=== PATIENT | female | born 1945 | race Caucasian/White ===

== ENCOUNTER 2016-08-07 22:59 | Inpatient (IN) | payer OTHER, MEDICARE ==
[2016-08-07] MEDS ORDERED: ceFAZolin 2 GM PREMIX 50 ML ONE (23:04)
--- NOTE | 2016-08-07 23:20 | PD ---
HPI Chief Complaint: Trauma (Alert) Time Seen by Provider: 23:04 Travel History International Travel<30 days: No Contact w/Intl Traveler<30days: No Traveled to known affect area: No History of Present Illness HPI Patient was brought in as a trauma alert. I was present in the room waiting for the patient to arrive. She is in her 68s and intoxicated. As per EMS she stepped out of her trailer and fell on concrete ground. As per the bystanders she had an LOC of 7-10 minutes. She had bleeding from the left side of her head /ear area. GCS was 14 on route. At one point her blood pressure was 80s systolic. She was given IV fluid bolus after which the blood pressure consistently remained more than 120s systolic. She arrived boarded and collared and talking but confused. Trauma surgeon was in the room as well assessing the patient. Patient was not a reliable historian given her mental status. [facility] Past Medical History Narrative Medical Unknown Social History Alcohol Use: Yes Tobacco Use: Yes Allergies-Medications (Allergen,Severity, Reaction): Coded Allergies: UNOBTAINABLE (Unverified , 08/07/16) Comments Unknown Narrative Medication Unknown Review of Systems Except as stated in HPI: all other systems reviewed are Neg Physical Exam Narrative GENERAL: Intoxicated, confused, boarded and collared, obese SKIN: Warm and dry. HEAD: Left-sided head bleed, ear bleed EYES: Pupils equal and round. No scleral icterus. No injection or drainage. ENT: No nasal bleeding or discharge. Mucous membranes pink and moist. NECK: Trachea midline. No JVD. CARDIOVASCULAR: Regular rate and rhythm. No murmur appreciated. RESPIRATORY: No accessory muscle use. Clear to auscultation. Breath sounds equal bilaterally. GASTROINTESTINAL: Abdomen soft, non-tender, nondistended. Hepatic and splenic margins not palpable. MUSCULOSKELETAL: No obvious deformities. No clubbing. No cyanosis. No edema. NEUROLOGICAL: Intoxicated and slurred speech. No obvious cranial nerve deficits. Motor grossly within normal limits. PSYCHIATRIC: Appropriate mood and affect; insight and judgment normal. Data Data Orders Cefazolin 2 Gm Premix (Ancef 2 Gm Premix (08/07/16 23:04) I-Stat Profile (08/07/16 23:04) I-Stat Creatinine (08/07/16 23:04) Complete Blood Count With Diff (08/07/16 23:04) Prothrombin Time / Inr (Pt) (08/07/16 23:04) Act Partial Throm Time (Ptt) (08/07/16 23:04) Type And Screen (08/07/16 23:04) Chest, Single Ap (08/07/16 23:04) Pelvis, Ap Only (Routine) (08/07/16 23:04) Ct Brain W/O Iv Contrast(Rout) (08/07/16 23:04) Ct Cerv Spine W/O Contrast (08/07/16 23:04) Ct Abd/Pel W Iv Contrast(Rout) (08/07/16 23:04) Iv Access Insert/Monitor (08/07/16 23:04) Ecg Monitoring (08/07/16 23:04) Oximetry (08/07/16 23:04) Oxygen Administration (08/07/16 23:04) Ct Thorax/ Chest W Iv Contrast (08/07/16 ) Collar Swain (08/07/16 ) Iohexol 350 Inj (Omnipaque 350 Inj) (08/07/16 23:23) Admit To Inpatient (08/07/16 ) Vital Signs (Adult) PITER.QSHIFT (08/07/16 23:29) Intake + Output PITER.Q8H (08/07/16 23:29) Neuro Checks PITER.Q4H (08/07/16 23:29) Activity Oob Ad Carley (08/07/16 23:29) Urinary Catheter Management PITER.Q8H (08/07/16 23:29) ^ Instruction (08/07/16 23:29) Complete Blood Count With Diff (08/08/16 06:00) Basic Metabolic Panel (Bmp) (08/08/16 06:00) Lactated Ringer's 1000 Ml Inj (Lr 1000 M (08/07/16 23:29) Sodium Chloride 0.9% Flush (Ns Flush) (08/07/16 23:30) Morphine Inj (Morphine Inj) (08/07/16 23:30) Ondansetron Inj (Zofran Inj) (08/07/16 23:30) Multivitamin Inj (Mvi-12 Inj)... (08/08/16 02:00) ^ Initiate Protocol (08/07/16 23:29) ^ Instruction (08/07/16 23:29) [facility] [place] (08/07/16 23:30) Chlorhexidine 2% Cloth (Chlorhexidine 2% (08/07/16 23:30) Inpatient Certification (08/07/16 ) Pantoprazole Inj (Protonix Inj) (08/08/16 00:00) Admit Order (Ed Use Only) (08/07/16 23:46) Labs Laboratory Tests Test 08/07/16 23:04 White Blood Count 13.1 TH/MM3 Red Blood Count 4.62 MIL/MM3 Hemoglobin 13.4 GM/DL Bedside Hemoglobin 14.3 G/DL Hematocrit 40.3 % Bedside Hematocrit 42.0 % Mean Corpuscular Volume 87.3 FL Mean Corpuscular Hemoglobin 29.0 PG Mean Corpuscular Hemoglobin 33.2 % Concent Red Cell Distribution Width 13.5 % Platelet Count 263 TH/MM3 Mean Platelet Volume 8.9 FL Neutrophils (%) (Auto) 61.3 % Lymphocytes (%) (Auto) 30.8 % Monocytes (%) (Auto) 5.4 % Eosinophils (%) (Auto) 2.0 % Basophils (%) (Auto) 0.5 % Neutrophils # (Auto) 8.0 TH/MM3 Lymphocytes # (Auto) 4.0 TH/MM3 Monocytes # (Auto) 0.7 TH/MM3 Eosinophils # (Auto) 0.3 TH/MM3 Basophils # (Auto) 0.1 TH/MM3 CBC Comment DIFF FINAL Differential Comment Prothrombin Time 10.6 SEC Prothromb Time International 1.0 RATIO Ratio Activated Partial 25.4 SEC Thromboplast Time Bedside Sodium 136 MMOL/L Bedside Potassium 3.9 MMOL/L Bedside Chloride 94 MMOL/L Bedside Blood Urea Nitrogen 11 MG/DL Bedside Creatinine 1.0 MG/DL Bedside Glucose 106 MG/DL Blood Type A POSITIVE Antibody Screen NEGATIVE MDM Medical Screen Exam Complete: Yes Emergency Medical Condition: Yes Medical Record Reviewed: Yes EKG Prior to Arrival: Yes Differential Diagnosis Intracranial bleed, cervical fracture, intrathoracic injury, intra-abdominal injury Narrative Course 11:49 PM I was in the room along with the trauma surgeon. Patient was cleared off the backboard and palpated her spine. Patient continued to remain GCS of 14 and hemodynamically stable. She was taken to the CT scanner and the trauma surgeon assisted her. I did not do a FAST ultrasound on this patient. Trauma surgeon wanted to admit her overnight at least for observation given her altered mental status. The trauma surgeon will take care of the scalp laceration. Please refer to his notes. Critical Care Narrative Aggregate critical care time was 30 minutes. Time to perform other separately billable procedures was not included in the critical care time. My time did not include minutes spent treating any other patients simultaneously or on activities that did not directly contribute to the patient's treatment. The services I provided to this patient were to treat and/or prevent clinically significant deterioration that could result in: Trauma alert, head injury, altered mental status I provided critical care services requiring my management, as noted below: Chart data review, documentation time, medication orders and management, vital sign assessments/reviewing monitor data, ordering and reviewing lab tests, ordering and interpreting/reviewing x-rays and diagnostic studies, care of the patient and discussion of the patient with the admitting physicians. Trauma Alert - Level One Trauma Alert Level One: Full trauma team activate, Patient evaluated, Trauma surgeon summoned Time Surgeon Summoned: 22:[address] Fuentes Diagnosis Diagnosis: Primary Impression: Fall Qualified Code: W19.XXXA - Fall, initial encounter Additional Impressions: Head injury Qualified Code: S09.90XA - Head injury, initial encounter Altered mental status Qualified Code: R41.0 - Disorientation Scalp laceration Qualified Code: S01.01XA - Scalp laceration, initial encounter Admitting Physician Requests: Observation Guerline Mckeon MD Aug 07, 2016 23:20 Guerline Mckeon MD Aug 07, 2016 23:20
[2016-08-07 23:21] LABS: I-STAT POTASSIUM 3.9 MMOL/L (3.5-4.9)
[2016-08-07 23:22] LABS: BASOPHIL # 0.1 TH/MM3 (0-0.2); BASOPHIL % 0.5 % (0.0-2.0); EOSINOPHIL # 0.3 TH/MM3 (0-0.4); HEMATOCRIT 40.3 % (35.0-46.0); HEMO FLAGS DIFF FINAL; LYMPH % 30.8 % (9.0-44.0); MEAN CELL VOLUME 87.3 FL (80.0-100.0); MEAN CORPUSCULAR HGB CONC 33.2 % (32.0-36.0); MONO % 5.4 % (0.0-8.0); NEUT % 61.3 % (16.0-70.0); PLATELET COUNT 263 TH/MM3 (150-450); RED BLOOD COUNT 4.62 MIL/MM3 (4.00-5.30); RED CELL DISTRIBUTION WIDTH 13.5 % (11.6-17.2); WHITE BLOOD COUNT 13.1 TH/MM3 (4.0-11.0)
[2016-08-07] MEDS ORDERED: IOHEXOL 350 MG/ML 10 ML VIAL (for RAD DIAG) IV ONE (23:23)
[2016-08-07] MEDS ORDERED: LACTATED RINGER'S 1000 ML INJ 1,000 ML IV SCH (23:29)
--- NOTE | 2016-08-07 23:29 | RADRPT ---
EXAM DATE/TIME: 08/07/2016 23:06 [facility] COMPARISON: No previous studies available for comparison. INDICATIONS : Trauma alert; fall from standing RADIATION DOSE: 69.15 CTDIvol (mGy) MEDICAL HISTORY : Non-responsive. SURGICAL HISTORY : Non-responsive. ENCOUNTER: Initial ACUITY: 1 day PAIN SCALE: Non-responsive LOCATION: Bilateral cranial TECHNIQUE: Multiple contiguous axial images were obtained of the head. Using automated exposure control and adj ustment of the mA and/or kV according to patient size, radiation dose was kept as low as reasonably a chievable to obtain optimal diagnostic quality images. FINDINGS: CEREBRUM: The ventricles are normal for age. No evidence of midline shift, mass lesion, hemorrhage or acute in farction. No extra-axial fluid collections are seen. POSTERIOR FOSSA: The cerebellum and brainstem are intact. The 4th ventricle is midline. The cerebellopontine angle i s unremarkable. EXTRACRANIAL: The visualized portion of the orbits is intact. SKULL: The calvaria is intact. No evidence of skull fracture. CONCLUSION: 1. No acute intracranial abnormalities. There is a left-sided scalp laceration and scalp hematoma. Re tention cyst left maxillary sinus. Dread Conway MD on August 07, 2016 at 23:22 Board Certified Radiologist. This report was verified electronically.
[2016-08-07 23:30] LABS: APTT (PATIENT) 25.4 SEC (24.3-30.1); PROTHROMBIN TIME - PATIENT 10.6 SEC (9.8-11.6)
[2016-08-07] MEDS ORDERED: MORPHINE SULFATE 4 MG/ML INJ IV PRN (23:30)
[2016-08-07] MEDS ORDERED: CHLORHEXIDINE GLUCONATE 2 % 1 PACK (2 CLOTHS) TOP PRN (23:30)
[2016-08-07] MEDS ORDERED: ONDANSETRON HCL 4 MG/2 ML VIAL IV PRN (23:30)
[2016-08-07] MEDS ORDERED: SODIUM CHLORIDE 0.9% FLUSH 5 ML FLUSH IVF PRN (23:30)
[2016-08-07] MEDS ORDERED: MISCELLANEOUS NURSING INFORMATION XX SCH (23:30)
--- NOTE | 2016-08-07 23:31 | RADRPT ---
EXAM DATE/TIME: 08/07/2016 22:53 [facility] COMPARISON: No previous studies available for comparison. INDICATIONS : Trauma alert. Patient tripped and fell out of her trailer home. MEDICAL HISTORY : None. SURGICAL HISTORY : None. ENCOUNTER: Initial ACUITY: 1 day PAIN SCORE: Non-responsive. LOCATION: chest FINDINGS: A single view of the chest demonstrates the lungs to be symmetrically aerated without evidence of mas s, infiltrate or effusion. The cardiomediastinal contours are unremarkable. Osseous structures are intact. CONCLUSION: No acute disease. Dread Conway MD on August 07, 2016 at 23:27 Board Certified Radiologist. This report was verified electronically.
--- NOTE | 2016-08-07 23:31 | RADRPT ---
EXAM DATE/TIME: 08/07/2016 22:53 [facility] COMPARISON: No previous studies available for comparison. INDICATIONS : Trauma alert. Patient tripped and fell coming out of trailer home. MEDICAL HISTORY : None. SURGICAL HISTORY : None. ENCOUNTER: Initial ACUITY: 1 day PAIN SCORE: Non-responsive. LOCATION: Pelvis FINDINGS: A single frontal view of the pelvis demonstrates no evidence of fracture. The bony pelvic ring is in tact. Bony mineralization is normal. The soft tissues are intact. CONCLUSION: 1. No acute findings. Dread Conway MD on August 07, 2016 at 23:29 Board Certified Radiologist. This report was verified electronically.
--- NOTE | 2016-08-07 23:42 | HHI.HP ---
History of Present Illness Primary Care Physician Admission Diagnosis Diagnoses: History of Present Illness 68 + y.o female fell from her sjocqgg-fnqyvqjzbso-avegvyxwya had a LOC of 7-10 min-trauma lert-GCS 14-moving all 4 extremities-HD normal Review of Systems ROS Limitations: Clinical Condition, Intoxication, Altered Mental Status, Uncooperative ROS cannot be obtained due to clinical condition Past Family Social History Allergies: Coded Allergies: UNOBTAINABLE (Unverified , 08/07/16) Past Medical History cannot be obtained Past Surgical History cannot be obtained Reported Medications cannot be obtained Active Ordered Medications cannot be obtained Family History cannot be obtained Social History cannot be obtained Physical Exam Physical Exam GENERAL: This is a well-nourished, well-developed patient, apparently intoxicated with ETOH SKIN: No rashes, ecchymoses or lesions. Cool and dry. HEAD: Atraumatic. Normocephalic. No temporal or scalp tenderness. EYES: Pupils equal round and reactive. Extraocular motions intact. No scleral icterus. No injection or drainage. ENT: Nose without bleeding, purulent drainage or septal hematoma. Throat without erythema, tonsillar hypertrophy or exudate. Uvula midline. Airway patent.bleeding small 1.5 cm wound left ear NECK: Trachea midline. No JVD or lymphadenopathy. Supple, nontender, no meningeal signs. CARDIOVASCULAR: Regular rate and rhythm without murmurs, gallops, or rubs. RESPIRATORY: Clear to auscultation. Breath sounds equal bilaterally. No wheezes , rales, or rhonchi. GASTROINTESTINAL: Abdomen soft, non-tender, nondistended. No hepato-splenomegaly , or palpable masses. No guarding. MUSCULOSKELETAL: Extremities without clubbing, cyanosis, or edema. No joint tenderness, effusion, or edema noted. No calf tenderness. Negative Homans sign bilaterally. NEUROLOGICAL: GCS 14Cranial nerves II through XII intact. Motor and sensory grossly within normal limits. Five out of 5 muscle strength in all muscle groups. Normal speech. Laboratory Laboratory Tests Test 08/07/16 23:04 White Blood Count 13.1 Red Blood Count 4.62 Hemoglobin 13.4 Bedside Hemoglobin 14.3 Hematocrit 40.3 Bedside Hematocrit 42.0 Mean Corpuscular Volume 87.3 Mean Corpuscular Hemoglobin 29.0 Mean Corpuscular Hemoglobin 33.2 Concent Red Cell Distribution Width 13.5 Platelet Count 263 Mean Platelet Volume 8.9 Neutrophils (%) (Auto) 61.3 Lymphocytes (%) (Auto) 30.8 Monocytes (%) (Auto) 5.4 Eosinophils (%) (Auto) 2.0 Basophils (%) (Auto) 0.5 Neutrophils # (Auto) 8.0 Lymphocytes # (Auto) 4.0 Monocytes # (Auto) 0.7 Eosinophils # (Auto) 0.3 Basophils # (Auto) 0.1 CBC Comment DIFF FINAL Differential Comment Prothrombin Time 10.6 Prothromb Time International 1.0 Ratio Activated Partial 25.4 Thromboplast Time Bedside Sodium 136 Bedside Potassium 3.9 Bedside Chloride 94 Bedside Blood Urea Nitrogen 11 Bedside Creatinine 1.0 Bedside Glucose 106 Blood Type A POSITIVE Result Diagram: 08/07/16 2304 Imaging my own review CT head,cspine,CAP -no injury Assessment and Plan Assessment and Plan small ear injury left ETOH intoxication no systemic injuries admit to floor hydrate banana bag anticipate dc in am closure ear wound ER Mily Fuentes MD Aug 07, 2016 23:42
--- NOTE | 2016-08-07 23:42 | RADRPT ---
EXAM DATE/TIME: 08/07/2016 23:10 [facility] COMPARISON: No previous studies available for comparison. INDICATIONS : Trauma alert, fall from a standing position. RADIATION DOSE: 37.38 CTDIvol (mGy) MEDICAL HISTORY : Non-responsive. SURGICAL HISTORY : Non-responsive. ENCOUNTER: Initial ACUITY: 1 day PAIN SCALE: Non-responsive LOCATION: neck TECHNIQUE: Volumetric scanning of the cervical spine was performed. Multiplanar reconstructions in the sagittal, coronal and oblique axial planes were performed. Using automated exposure control and adjustment o f the mA and/or kV according to patient size, radiation dose was kept as low as reasonably achievable to obtain optimal diagnostic quality images. FINDINGS: No acute fracture or spondylolisthesis or pre-vertebral soft tissue swelling. Moderate degenerative d isc disease in lower cervical spine with mild canal stenosis at C5-6-7. CONCLUSION: 1. No acute findings. Moderate degenerative disc disease and facet arthropathy predominantly in the l ower cervical spine. Dread Conway MD on August 07, 2016 at 23:37 Board Certified Radiologist. This report was verified electronically.
--- NOTE | 2016-08-07 23:51 | RADRPT ---
EXAM DATE/TIME: 08/07/2016 23:13 [facility] COMPARISON: No previous studies available for comparison. INDICATIONS : Trauma alert; fall from standing position. IV CONTRAST: 100 cc Omnipaque 350 (iohexol) IV ; Cumulative dose for multiple exams. ORAL CONTRAST: No oral contrast ingested. RADIATION DOSE: 6.83 CTDIvol (mGy) ; Combined studies - Thorax/Abdomen/Pelvis MEDICAL HISTORY : None SURGICAL HISTORY : None. ENCOUNTER: Initial ACUITY: 1 day PAIN SCALE: Non-responsive LOCATION: abdomen TECHNIQUE: Volumetric scanning of the abdomen and pelvis was performed. Using automated exposure control and ad justment of the mA and/or kV according to patient size, radiation dose was kept as low as reasonably achievable to obtain optimal diagnostic quality images. FINDINGS: Lung bases are clear. Fatty liver. No acute findings in the spleen, adrenals, kidneys or pancreas. No calcified gallstones. No free fluid or free air. No acute bony abnormalities. CONCLUSION: 1. Negative for traumatic injury in the abdomen and pelvis. Fatty liver. Small hiatal hernia. Dread Conway MD on August 07, 2016 at 23:45 Board Certified Radiologist. This report was verified electronically.
--- NOTE | 2016-08-07 23:56 | RADRPT ---
EXAM DATE/TIME: 08/07/2016 23:15 [facility] COMPARISON: No previous studies available for comparison. INDICATIONS : Trauma alert; fall from standing position. IV CONTRAST: 100 cc Omnipaque 350 (iohexol) IV ; Cumulative dose for multiple exams. RADIATION DOSE: 6.83 CTDIvol (mGy) ; Combined studies - Thorax/Abdomen/Pelvis MEDICAL HISTORY : Non-responsive. SURGICAL HISTORY : Non-responsive. ENCOUNTER: Initial ACUITY: 1 day PAIN SCALE: Non-responsive LOCATION: chest TECHNIQUE: Volumetric scanning of the chest was performed. Using automated exposure control and adjustment of t he mA and/or kV according to patient size, radiation dose was kept as low as reasonably achievable to obtain optimal diagnostic quality images. FINDINGS: There is minimal linear scarring in the lungs. No consolidation. Effusion. No pneumothorax. No mediastinal hematoma or evidence for aortic injury. Mild coronary calcifications. No acute finding s in the upper abdomen. CONCLUSION: 1. No acute findings. Dread Conway MD on August 07, 2016 at 23:49 Board Certified Radiologist. This report was verified electronically.
[2016-08-08] MEDS: PANTOPRAZOLE SODIUM 40 MG VIAL IVP SCH ×2 (00:39→02:11)
[2016-08-08 01:22] VITALS: BP 116/62; PULSE 107; RESP 18; TEMP 97.1; O2SAT 97
[2016-08-08] MEDS ORDERED: MULTIVITAMIN INJ 10 ML, THIAMINE INJ 100 MG, FOLIC ACID INJ 1 MG in SODIUM CHLORID 0.9%... IV SCH (02:00)
[2016-08-08 04:00] VITALS: BP 120/55; PULSE 107; PULSE 111; PULSE 67; RESP 18; TEMP 98.6; O2SAT 97
[2016-08-08] MEDS ORDERED: MECLIZINE HCL 25 MG TAB PO PRN (07:00)
[2016-08-08 08:35] LABS: AUTOMATED NEUTROPHIL # 5.2 TH/MM3 (1.8-7.7); BASOPHIL % 0.4 % (0.0-2.0); EOSINOPHIL # 0.1 TH/MM3 (0-0.4); EOSINOPHIL % 0.7 % (0.0-4.0); HEMATOCRIT 37.1 % (35.0-46.0); HEMO FLAGS DIFF FINAL; LYMPH % 29.7 % (9.0-44.0); LYMPHOCYTE # 2.5 TH/MM3 (1.0-4.8); MEAN CELL VOLUME 87.8 FL (80.0-100.0); MEAN CORPUSCULAR HEMOGLOBIN 28.8 PG (27.0-34.0); MEAN CORPUSCULAR HGB CONC 32.8 % (32.0-36.0); MONO % 7.8 % (0.0-8.0); NEUT % 61.4 % (16.0-70.0); PLATELET COUNT 224 TH/MM3 (150-450); RED BLOOD COUNT 4.23 MIL/MM3 (4.00-5.30); RED CELL DISTRIBUTION WIDTH 13.6 % (11.6-17.2); WHITE BLOOD COUNT 8.5 TH/MM3 (4.0-11.0)
[2016-08-08] MEDS ORDERED: MAGNESIUM HYDROXIDE SUSP 30 ML CUP PO SCH (09:00)
[2016-08-08] MEDS ORDERED: DOCUSATE SODIUM 50 MG/SENNA 8.6 MG TAB PO SCH (09:00)
[2016-08-08 09:06] LABS: BICARBONATE 26.4 MEQ/L (21.0-32.0); POTASSIUM 4.4 MEQ/L (3.5-5.1)
[2016-08-08 09:11] VITALS: BP 121/55; PULSE 100; RESP 24; TEMP 96.7; O2SAT 91
[2016-08-08 12:45] VITALS: BP 151/71; PULSE 97; RESP 24; TEMP 99.5; O2SAT 94
--- NOTE | 2016-08-08 14:29 | HHI.DS ---
Discharge Summary Admission Date Aug 07, 2016 at 23:48 Discharge Date: Aug 08, 2016 Admitting Diagnosis head injury, concussion, acute alcohol intoxication (1) Altered mental status Diagnosis: Principal (2) Head injury Diagnosis: Principal (3) Fall Diagnosis: Principal (4) Scalp laceration Diagnosis: Principal Significant Findings Laboratory Tests Test 08/07/16 08/08/16 23:04 07:20 White Blood Count 13.1 TH/MM3 (4.0-11.0) Neutrophils # (Auto) 8.0 TH/MM3 (1.8-7.7) Bedside Sodium 136 MMOL/L (138-146) Bedside Chloride 94 MMOL/L (98-109) Bedside Glucose 106 MG/DL (60-95) Chloride Level 109 MEQ/L (98-107) Estimat Glomerular Filtration 66 ML/MIN (>89) Rate Calcium Level 7.9 MG/DL (8.5-10.1) Imaging Last Impressions Pelvis X-Ray 08/07/162303 Signed Impressions: Service Date/Time: July 22:53 - CONCLUSION: 1. No acute findings. Dread Conway MD Head CT 08/07/162303 Signed Impressions: Service Date/Time: July 23:06 - CONCLUSION: 1. No acute intracranial abnormalities. There is a left-sided scalp laceration and scalp hematoma. Retention cyst left maxillary sinus. Dread Conway MD Chest X-Ray 08/07/162303 Signed Impressions: Service Date/Time: July 22:53 - CONCLUSION: No acute disease. Dread Conway MD Cervical Spine CT 08/07/162303 Signed Impressions: Service Date/Time: July 23:10 - CONCLUSION: 1. No acute findings. Moderate degenerative disc disease and facet arthropathy predominantly in the lower cervical spine. Dread Conway MD Abdomen/Pelvis CT 08/07/162303 Signed Impressions: Service Date/Time: July 23:13 - CONCLUSION: 1. Negative for traumatic injury in the abdomen and pelvis. Fatty liver. Small hiatal hernia. Dread Conway MD Chest CT 08/07/16 0000 Signed Impressions: Service Date/Time: July 23:15 - CONCLUSION: 1. No acute findings. Dread Conway MD PE at Discharge GENERAL: This is a 71 year old female sitting in bed in no acute distress. SKIN: Warm and dry. HEAD: Normocephalic. Small laceration noted to the side of head. EYES: PERRLA ENT: No nasal bleeding or discharge. Mucous membranes pink and moist. NECK: Trachea midline. No JVD. CARDIOVASCULAR: Regular rate and rhythm. RESPIRATORY: No accessory muscle use. Lungs are clear to auscultation. Breath sounds equal bilaterally. No distress or dyspnea. GASTROINTESTINAL: BS + x 4 quads. Abdomen soft, non-tender, nondistended. MUSCULOSKELETAL: Extremities without cyanosis, or edema. + peripheral pulses x 4 extremities. Warm with good capillary refill and sensation. MAEW. NEUROLOGICAL: Awake and alert. Normal speech and pattern. Hospital Course The patient was brought in as a trauma alert. He is intoxicated. As per EMS she stepped out of her trailer and fell on concrete ground. As per the bystanders she had an LOC of 7-10 minutes. She had bleeding from the left side of her head/ear area. GCS was 14 on route. At one point her blood pressure was 80s systolic. She was given IV fluid bolus after which the blood pressure consistently remained more than 120s systolic. She arrived boarded and collared and talking but confused. Patient was not a reliable historian given her mental status. INJURIES: Left scalp lac with hematoma Concussion ? Aspiration Diet: Regular Pulmonary: IS Pain: IV Morphine, Meclizine, Activity: OOB, PT evaluated- no home needs. GI: IV Protonix Bowel: Helga-colace, MOM DVT: SCDs The patient is now tolerating a po diet. Eating and drinking well. The patient states that she is not having any pain, and will not need a prescription for narcotic pain medicine at home. We have recommended to patient to continue with stool softeners to prevent constipation. The patient denies dizziness, and has been walking well without any assistance. She states she would really like to go home. All follow up appointments have been provided and discussed with the patient. It is recommended that the patient keeps all his follow up appointments for continued recovery. Therefore, the patient is stable to be safely discharged home from a trauma surgery standpoint. Thank you for allowing us to participate in her care. We wish Marie the best in her recovery. Pt Condition on Discharge: Stable Discharge Disposition: Discharge Home Discharge Instructions DIET: Follow Instructions for: As Tolerated, No Restrictions Activities you can perform: Regular-No Restrictions Remarks seen and examined with MUSIC LIBRARIAN-agree with assessment and plan Sara Serna Aug 08, 2016 14:29 Mily Fuentes MD Aug 19, 2016 17:13 Sara Serna Aug 08, 2016 14:29
== END 2016-08-08 13:06 | disposition home or self-care (01) | DRG 90 ==
LOC: NEPE 22:59 → OBSVTOIN 23:48 → NEDA 23:48 → EDBD 23:48 → N05B 08-08 01:30
PROVIDERS: ADMIT Surgery Trauma Surgery; ATTEND Surgery Trauma Surgery
DX: S06.0X1A Concussion with loss of consciousness of 30 minutes or less, initial encounter (principal); F10.129 Alcohol abuse with intoxication, unspecified; R40.2412 Glasgow coma scale score 13-15, at arrival to emergency department; S01.01XA Laceration without foreign body of scalp, initial encounter; S01.312A Laceration without foreign body of left ear, initial encounter; W10.8XXA Fall (on) (from) other stairs and steps, initial encounter; Y92.029 Unspecified place in mobile home as the place of occurrence of the external cause; F17.210 Nicotine dependence, cigarettes, uncomplicated
CPT/HCPCS: 70450; 71010; 71260; 72125; 72170; 74177; 80048; 82435; 82565; 82947; 84132; 84295; 84520; 85025; 85610; 85730; 86850; 86900; 86901; 90471; 96374; 99291; C9113; G0390; J0690; J3411; J7040; J7120; L0150; Q9967